=== PATIENT | male | born 1980 | race Caucasian/White ===

== ENCOUNTER 2024-12-18 12:42 | Emergency (ER) | payer BC, OTHER ==
[2024-12-18 14:18] LABS: BASOPHILS ABSOLUTE AUTO 0.0 K/mm3 (0.0-0.2); BASOPHILS PERCENT AUTO 0.3 % (0.0-1.0); EOSINOPHILS ABSOLUTE AUTO 0.0 K/mm3 (0.0-0.4); EOSINOPHILS PERCENT AUTO 0.1 % (0.0-6.0); IMMATURE GRAN ABSOLUTE AUTO 0.03 K/mm3 (0.00-0.05); IMMATURE GRAN PERCENT AUTO 0.3 % (0.0-0.4); LYMPHOCYTES ABSOLUTE AUTO 1.4 K/mm3 (1.0-4.8); LYMPHOCYTES PERCENT AUTO 12.0 % (24.0-44.0); MEAN PLATELET VOLUME 9.1 fl (9.4-12.4); MONOCYTES ABSOLUTE AUTO 1.0 K/mm3 (0.0-0.8); MONOCYTES PERCENT AUTO 8.6 % (0.0-8.0); NEUTROPHILS ABSOLUTE AUTO 8.9 K/mm3 (1.8-7.7); NEUTROPHILS PERCENT AUTO 78.7 % (41.0-71.0); NRBC ABSOLUTE 0.00 (0.00-0.02); NRBC PERCENT 0.0 % (0.0-0.2); PLATELET COUNT,PLT 258 K/mm3 (150-400); RED BLOOD CELL COUNT 5.18 M/mm3 (4.52-5.90); WHITE BLOOD CELL COUNT,WBC 11.33 K/mm3 (3.9-11.3)
[2024-12-18] MEDS: Sodium Chloride 0.9% 10 ML Syringe FLUSH PRN ×2 (14:37→17:24)
[2024-12-18] MEDS: Iopamidol 612 MG/ML 100 ML Bottle IVPUSH ONE (14:38)
[2024-12-18 14:41] LABS: A/G RATIO 1.4 (1-2); ALANINE AMINOTRANSFERASE,ALT 27 U/L (16-63); ASPARTATE AMNIOTRANSFERASE,AST 17 U/L (15-37); BILIRUBIN TOTAL 1.2 mg/dL (0.2-1.0); BLOOD UREA NITROGEN,BUN 20 mg/dL (7-18); CARBON DIOXIDE,CO2 27 mEq/L (21-32); CHLORIDE,CL 107 mEq/L (98-107); CREATININE 1.0 mg/dL (0.7-1.3); EST CRCL DRUG DOSING (CG) 98.35 mL/min; ESTIMATED GFR 96 mL/min (>60); GLUCOSE RANDOM 101 mg/dL (70-99); POTASSIUM,K 3.4 mEq/L (3.5-5.1); PROTEIN TOTAL,TP 8.0 g/dl (6.4-8.2); SODIUM,NA 146 mEq/L (136-145)
[2024-12-18] MEDS: Ondansetron 4 MG/2 ML SDV IVPUSH ONE (14:42)
[2024-12-18 17:01] LABS: APPEARANCE,URINE CLEAR (Clear); GLUCOSE,URINE NEGATIVE (Negative); OCCULT BLOOD,URINE TRACE-INTACT (Negative)
[2024-12-18 17:08] LABS: EPITHELIAL CELLS,URINE 0-5 /hpf (0-5)
[2024-12-18 18:53] VITALS: BP 116/72; PULSE 71
== END 2024-12-18 18:53 | disposition home or self-care (01) ==
LOC: JD.ED 12:42
DX: R11.2 Nausea with vomiting, unspecified (principal); E78.00 Pure hypercholesterolemia, unspecified; Z90.49 Acquired absence of other specified parts of digestive tract; Z88.2 Allergy status to sulfonamides; Z79.899 Other long term (current) drug therapy
CPT/HCPCS: 36415; 74177; 80053; 81001; 83690; 83735; 85025; 86140; 96361; 96374; 96375; 99284; J2405; J2765; J7030; Q9967